=== PATIENT | female | born 1965 | race Caucasian/White ===

== ENCOUNTER → 2023-09-11 14:32 | Outpatient (REF) | payer OTHER, SELFPAY | LOC: WDC 14:32 | PROVIDERS: ATTENDING PHYSICIAN Internal Medicine | DX: Z12.31 Encounter for screening mammogram for malignant neoplasm of breast (principal) | CPT/HCPCS: 77063; 77067 ==

== ENCOUNTER → 2023-09-24 15:07 | Outpatient (REF) | payer OTHER, SELFPAY | LOC: RAD 15:07 | PROVIDERS: ATTENDING PHYSICIAN Internal Medicine | DX: M25.521 Pain in right elbow (principal) | CPT/HCPCS: 73080 ==

== ENCOUNTER → 2024-09-14 11:43 | Outpatient (REF) | payer OTHER, SELFPAY | LOC: WDC 11:43 | PROVIDERS: ATTENDING PHYSICIAN Obstetrics & Gynecology Gynecology; FAMILY PHYSICIAN Student in an Organized Health Care Education/Training Program | DX: Z12.31 Encounter for screening mammogram for malignant neoplasm of breast (principal) | CPT/HCPCS: 77063; 77067 ==

== ENCOUNTER → 2024-09-29 12:20 | Outpatient (REF) | payer OTHER, SELFPAY | LOC: RAD 12:20 | PROVIDERS: ATTENDING PHYSICIAN Student in an Organized Health Care Education/Training Program | DX: M25.552 Pain in left hip (principal); M25.551 Pain in right hip | CPT/HCPCS: 73523 ==

== ENCOUNTER → 2024-09-30 08:07 | Outpatient (REF) | payer OTHER, SELFPAY | LOC: WDC 08:07 | PROVIDERS: ATTENDING PHYSICIAN Student in an Organized Health Care Education/Training Program | DX: R92.333 Mammographic heterogeneous density, bilateral breasts (principal) | CPT/HCPCS: 76641 ==